=== PATIENT | male | born 2000 | race Caucasian/White ===

== ENCOUNTER 2024-12-07 10:22 | Emergency (ER) | payer OTHER, SELFPAY ==
[2024-12-07 10:27] VITALS: BP 148/92; PULSE 74; TEMP 36.9; O2SAT 98; BMI 27.3
--- NOTE | 2024-12-07 10:40 | ED_ITS ---
HPI - Wound/Laceration General Chief Complaint: Wound/Laceration Stated Complaint: UPPER EXTREMITY INJURY Time Seen by Provider: 12/07/24 10:24 Source: patient Mode of arrival: walk-in Limitations: no limitations History of Present Illness HPI narrative: 24-year-old male presents for lacerations to his right third and fourth fingers. This was sustained a few minutes before coming into the emergency department on the sharp edge of metal, no broken glass or chance of foreign body. He had a tetanus shot a few years ago. No numbness or weakness and no other injuries were sustained. Related Data Home Medications ?Medication ?Instructions ?Recorded ?Confirmed No Known Home Medications 12/07/24 12/07/24 Allergies Allergy/AdvReac Type Severity Reaction Status Date / Time No Known Drug Allergies Allergy Verified 12/07/24 10:26 Review of Systems ROS Narrative A ten point review of systems is negative except as noted above. PFSH PFSH Social History Little interest or pleasure in doing things: not at all Feeling down, depressed, or hopeless: not at all Exam Narrative Exam Narrative: Nurses note and vital signs reviewed and patient is not hypoxic. General: The patient appears well and in no apparent distress. Patient is resting comfortably on cart. Skin: Warm, dry, no pallor noted. There is no rash noted. Head: Normocephalic, atraumatic Eye: Normal conjunctiva, no drainage Ears, Nose, Mouth, and Throat: oral mucosa is moist. Nares patent. Cardiovascular: Regular Rate and Rhythm Respiratory: Patient is in no distress, no accessory muscle use, lungs are clear to auscultation, no wheezing, rales or rhonchi Back: non-tender GI: Soft and nontender Musculoskeletal: His right hand is examined. The finger pads of the third and fourth fingers have lacerations, L-shaped. Each is 2 cm in length. The DIP has full range of motion. Nailbed is unaffected. Minimal bleeding present easily controlled with pressure, nonpulsatile Neurological: A&O, normal speech Psychiatric: Cooperative Constitutional Vital Signs, click to edit/add: Last Vital Signs Temp 98.4 F 12/07/24 10:27 Pulse 74 12/07/24 10:27 Resp 14 12/07/24 10:27 BP 148/92 H 12/07/24 10:27 Pulse Ox 98 12/07/24 10:27 Course Vital Signs Vital signs: Vital Signs Temperature 98.4 F 12/07/24 10:27 Pulse Rate 74 12/07/24 10:27 Respiratory Rate 14 12/07/24 10:27 Blood Pressure 148/92 H 12/07/24 10:27 Pulse Oximetry 98 12/07/24 10:27 Temperature 98.4 F 12/07/24 10:27 Pulse Rate 74 12/07/24 10:27 Respiratory Rate 14 12/07/24 10:27 Blood Pressure 148/92 H 12/07/24 10:27 Pulse Oximetry 98 12/07/24 10:27 MDM - Wound/Laceration MDM Narrative Medical decision making narrative: The following procedures were performed by me. Finger block applied to the right third and right fourth fingers resulting in complete skin anesthesia. The area was prepped with Betadine x 3 and draped sterilely. It was explored for foreign bodies and none were found. The third finger laceration was closed with six 5-0 Ethilon sutures in the fourth finger laceration was closed with four 5-0 Ethilon sutures. This resulted in good skin reapproximation and no complic ations. Sutures are to be removed in 8 days. Tetanus status is already up-to-date. Treatment diagnosis and follow-up were discussed with the patient. Differential Diagnosis Differential diagnosis: Likely laceration and avulsion of skin Discharge Plan Discharge Chief Complaint: Wound/Laceration Clinical Impression: Finger laceration Patient Disposition: Home, Self-Care Time of Disposition Decision: 11:58 Condition: Good Mode of Transportation: Private Vehicle Prescriptions / Home Meds: No Action No Known Home Medications Print Language: Serbian Instructions: Finger Laceration (ED) Additional Instructions: Sutures to be removed in 8 days. Leave tube gauze in place for 48 hours. Remove and apply bandage daily. Do not get stitches wet. Referrals: Physician,Non-Staff, MD [Primary Care Provider] - 1 week
[2024-12-07] MEDS: LIDOCAINE HCL 1% 100 MG/10 ML MDV INJ (11:05)
== END 2024-12-07 12:17 | disposition home or self-care (01) ==
PROVIDERS: Emergency Provider Emergency Medicine
DX: S61.212A Laceration without foreign body of right middle finger without damage to nail, initial encounter (principal); S61.214A Laceration without foreign body of right ring finger without damage to nail, initial encounter; W26.8XXA Contact with other sharp object(s), not elsewhere classified, initial encounter
CPT/HCPCS: 12001; 99284